=== PATIENT | male | born 1950 | race Caucasian/White ===

== ENCOUNTER 2021-03-16 12:55 | Day surgery (SDC) | payer MEDICARE, OTHER ==
[~2021-03-16] VITALS: Ht 182.9 cm; Wt 108.5 kg
[~2021-03-16 12:55] MED LIST: ATOR40TA PO; DOXA4 PO; HYDR1TAB94 PO; LISI20 PO; META800 PO; METF500 PO; MIRT15 PO; OMEP20ER PO
[2021-03-16] MEDS ORDERED: METO25ER (13:51)
[2021-03-16] MEDS ORDERED: TIZA4 (13:51)
[2021-03-16] MEDS ORDERED: NEURONTIN600 MG (13:52)
[2021-03-16] MEDS ORDERED: Cardura4 MG (13:53)
[2021-03-16] MEDS ORDERED: Crestor20 MG (13:53)
[2021-03-16] MEDS ORDERED: 1/2 NS 250ml250 ML (13:54)
[2021-03-16] MEDS ORDERED: LOW DOSE ASPIRI81 M1 (13:54)
[2021-03-16] MEDS ORDERED: CELE200 (13:54)
[2021-03-16] MEDS ORDERED: AMLO5 (13:55)
== END 2021-03-16 15:04 | disposition home or self-care (01) ==
LOC: ORSCSDS 12:55
PROVIDERS: Anesthesiology
PROC: 3E0R33Z Introduction of Anti-inflammatory into Spinal Canal, Percutaneous Approach (ICD-10-PCS; principal; 2021-03-16 14:00)
DX: M54.50 Low back pain, unspecified (principal); Z79.84 Long term (current) use of oral hypoglycemic drugs; E78.00 Pure hypercholesterolemia, unspecified; I10 Essential (primary) hypertension; K21.9 Gastro-esophageal reflux disease without esophagitis; F32.A Depression, unspecified; E11.9 Type 2 diabetes mellitus without complications; Z79.899 Other long term (current) drug therapy
CPT/HCPCS: J1040

== ENCOUNTER 2021-10-19 12:42 | Day surgery (SDC) | payer MEDICARE, OTHER ==
[~2021-10-19] VITALS: Ht 182.9 cm; Wt 107.6 kg
[~2021-10-19 12:42] MED LIST changes: +1/2 NS 250ml250 ML; +AMLO5; +CELE200; +Cardura4 MG; +Crestor20 MG; +LOW DOSE ASPIRI81 M1; +METO25ER; +NEURONTIN600 MG; +TIZA4
== END 2021-10-19 14:06 | disposition home or self-care (01) ==
LOC: ORSCSDS 12:42
PROVIDERS: Anesthesiology
PROC: 3E0R33Z Introduction of Anti-inflammatory into Spinal Canal, Percutaneous Approach (ICD-10-PCS; principal; 2021-10-19 13:45)
DX: M54.16 Radiculopathy, lumbar region (principal); M96.1 Postlaminectomy syndrome, not elsewhere classified; I27.20 Pulmonary hypertension, unspecified; K21.9 Gastro-esophageal reflux disease without esophagitis; F32.A Depression, unspecified; I10 Essential (primary) hypertension; E78.00 Pure hypercholesterolemia, unspecified; E11.9 Type 2 diabetes mellitus without complications; Z79.84 Long term (current) use of oral hypoglycemic drugs; Z79.899 Other long term (current) drug therapy
CPT/HCPCS: 82947; J1040